=== PATIENT | male | born 1975 | race Caucasian/White ===

== ENCOUNTER 2024-06-25 15:15 | Emergency (ER) | payer OTHER, SELFPAY ==
[2024-06-25 15:18] VITALS: BP 167/92; PULSE 80; RESP 18; TEMP 35.9; O2SAT 97; BMI 29.2
--- NOTE | 2024-06-25 16:45 | EDS_ITS ---
HPI History of Present Illness Chief Complaint: Complaint Informant: patient Onset/Context/Timing Onset: Today Context: Gradual Onset Timing: Continuous Quality: Pressure Location: Lower abdomen Worsened by: Nothing Relieved by: Nothing Narrative Narrative: Patient presents with constipation and urinary retention that began today. Patient states he has been unable to urinate because he feels that he is constipated. Patient states he took MiraLAX and Colace this morning with no bowel movement. Patient states that later he took a Dulcolax suppository and did not have a bowel movement after that. Patient denies any fevers or chills. Patient admits to some pressure over his bladder area. Patient denies any nausea or vomiting. Patient denies any back pain. PFSH PFSH Home Medications ?Medication ?Instructions ?Recorded ?Last Taken ?Type NK 06/25/24 Unknown History Allergy/AdvReac Type Severity Reaction Status Date / Time No Known Allergies Allergy Verified 06/25/24 15:17 Social History Smoking Status: Former smoker EXAM Physical Exam Const Vital Signs: 06/25/24 15:18 06/25/24 19:00 Temperature 96.6 F L Temperature Source Temporal Pulse Rate 80 63 Respiratory Rate 18 16 Blood Pressure 167/92 H 141/71 H Blood Pressure Mean 117 94 Pulse Ox 97 97 Oxygen Delivery Method Room Air Room Air MDM MDM MDM Narrative Medical decision making narrative: Differential diagnosis includes bowel obstruction, perforation, constipation, urinary tract infection, colitis, diverticulitis, and electrolyte abnormality. Urinalysis will be obtained to assess for urinary tract infection and hematuria. CBC will be obtained to assess for leukocytosis and anemia. Basic metabolic profile will be obtained to assess for electrolyte abnormality and renal function. CT scan of the abdomen and pelvis will be obtained to assess for bowel obstruction, perforation, and constipation. Lab Data Attestation: I reviewed the patient's lab results. Lab results narrative: CBC was reviewed. There is a slight leukocytosis of 12.2. The remainder is within normal limits. Basic metabolic profile was reviewed and was within normal limits. Urinalysis was reviewed. There is no evidence of urinary tract infection or hematuria. Labs: Laboratory Results - last 24 hr 06/25/24 06/25/24 14:22 17:25 WBC 12.2 H RBC 4.35 L Hgb 14.5 Hct 41.4 MCV 95.2 H MCH 33.3 H MCHC 35.0 RDW Std Deviation 44.7 H RDW Coeff of Willam 12.9 Plt Count 220 MPV 10.0 Immature Gran % (Auto) 0.500 Neut % (Auto) 80.4 H Lymph % (Auto) 12.7 L [place] % (Auto) 5.8 Eos % (Auto) 0.3 Baso % (Auto) 0.3 Absolute Neuts (auto) 9.8 H Absolute Lymphs (auto) 1.55 Nucleated RBC % 0 Sodium 138 Potassium 4.2 Chloride 104 Carbon Dioxide 28.0 Anion Gap 6 BUN 16 Creatinine 0.99 Estim Creat Clear Calc 98.92 Est GFR (MDRD) Af Amer 103 Est GFR (MDRD) Non-Af 85 BUN/Creatinine Ratio 16.2 Glucose 109 H Calcium 9.1 Urine Color Yellow Urine Clarity Clear Urine pH 6.0 Ur Specific [place] 1.015 Urine Protein Negative Urine Glucose (UA) Normal Urine Ketones Negative Urine Occult Blood 25 H Urine Nitrite Negative Urine Bilirubin Negative Urine Urobilinogen Normal Ur Leukocyte Esterase Negative Urine RBC 0-5 SEEN Urine WBC 0-5 SEEN Ur Squamous Epith Cells 0 SEEN Urine Bacteria 0 SEEN Hyaline Casts 0-5 SEEN Urine Mucus 0 SEEN Radiography Diagnostic Testing: Clinical Impression(s) from Imaging Studies Abdomen/Pelvis CT 06/25/24 17:16 IMPRESSION: 1. No free air or free fluid or bowel dilatation or obstruction. No visualized bowel masses or diverticulosis. No abscess is present. No inflammatory stranding is seen. 2. Moderate stool retention throughout the full length of the colon with partial fecal distention and impaction in the rectum Electronically Signed: Stephen Arciniega MD at 19:40 EST Reading Location ID and State: [facility] / [place] , Service support , CT scan of the abdomen and pelvis was obtained. There is no free air or free fluid. There is no evidence of bowel obstruction or perforation. There are no fluid/masses noted. There are no inflammatory changes noted. There is moderate stool retention throughout the entire colon. This was interpreted by the radiologist and was also independently reviewed by myself. Treatment and Re-Evaluation :: Straight cath was ordered. Patient had 1200 cc of urine in his bladder. Patient felt better after this. Patient was advised of his findings. Patient was given a soapsuds enema here. Patient had some results with this. Patient was instructed to continue using MiraLAX as needed for constipation. Patient was also instructed to continue using Dulcolax suppositories as needed. Patient was instructed to follow-up with his primary care physician in 5 to 7 days. Patient was instructed to return if worse in any way. Patient understood and was agreeable with the plan. All questions were answered. Discharge Plan Triage Chief Complaint: Complaint Other Complaint: Constipation ED Provider: Gerry Bal Dx/Rx/DC Orders Clinical Impression: Constipation, Urinary retention Instructions: ED Constipation (Adult), ED Urinary Retention, Male Prescriptions: No Action NK Primary Care Provider: Dashawn Jj Referrals: NOT,DEFINED [Non-Staff] - Dashawn Jj [Primary Care Provider] - 5-7 Days Activity Restrictions/Additional Instructions: Continue using MiraLAX as needed for constipation. Print Language: Macedonian Disposition Disposition: Home, Self Care
--- NOTE | 2024-06-25 17:16 | CT_ITS ---
STUDY: CT ABDOMEN AND PELVIS WITH CONTRAST REASON FOR EXAM: Male, 49 years old. Abdominal pain UNABLE TO VOID OR HAVE BM TODAY RADIATION DOSAGE (If Supplied By Facility): CTDIvol = ( 15.56 ) mGy, DLP = ( 980.07 ) mGycm TECHNIQUE: Transaxial images were obtained from the dome of the diaphragm to the symphysis pubis without oral contrast. ml of 100mL Isovue-370 contrast was administered. Sagittal and coronal images were reconstructed. Individualized dose optimization techniques were used for this CT. COMPARISON: None. FINDINGS: The visualized lung bases are unremarkable. The visualized portions of the heart are within normal limits. Normal liver. Tiny cyst at the undersurface and central aspect of the left lobe of the liver noted of no clinical significance and does not require any additional imaging or follow-up. No free air or free fluid or bowel dilatation or obstruction. No visualized bowel masses or diverticulosis. No abscess is present. No inflammatory stranding is seen. Moderate stool retention throughout the full length of the colon with partial fecal distention and impaction in the rectum Normal gallbladder and extrahepatic biliary system. Normal spleen. Normal pancreas. Normal bilateral adrenal glands. Normal right kidney. Normal left kidney. Normal visualized stomach. Normal small intestine. Normal colon. The appendix is visualized and appears normal. Normal abdominal aorta. Normal inferior vena cava. Normal retroperitoneum. Normal urinary bladder. There is a small umbilical hernia containing fat. Normal osseous structures. CT/Abdomen/Pelvis W IV Cont ONLY IMPRESSION: 1. No free air or free fluid or bowel dilatation or obstruction. No visualized bowel masses or diverticulosis. No abscess is present. No inflammatory stranding is seen. 2. Moderate stool retention throughout the full length of the colon with partial fecal distention and impaction in the rectum Electronically Signed: Stephen Arciniega MD at 19:40 EST ,
[2024-06-25 17:34] LABS: Bacteria 0 SEEN /hpf (None Seen); Mucous, Urine 0 SEEN /hpf (<or=2+); Squamous Epithelial Cells - UA 0 SEEN /hpf (0-5)
--- NOTE | 2024-06-25 17:34 | ED.RN ---
Dr. Bal notified of 1200mL out on straight cath
[2024-06-25 17:35] LABS: Absolute Lymphocyte Count 1.55 X10^3/uL (0.83-4.51); Absolute Neutrophil Count 9.8 X10^3/uL (2.0-7.7); Basophil# 0.04 X10^3/uL; Basophil% 0.3 % (0-1); Eosinophil# 0.04 X10^3/uL; Eosinophils% 0.3 % (0-5); Hematocrit 41.4 % (40-54); Hemoglobin 14.5 g/dL (13.0-16.5); Lymphocyte # 1.55 X10^3/ul (0.83-4.51); Lymphocyte % 12.7 % (19-41); Mean Corpuscular Hgb 33.3 pg (27.0-32.0); Mean Corpuscular Volume 95.2 fL (80-94); Monocyte# 0.71 X10^3/uL; Monocyte% 5.8 % (0-10); NRBC Flagged by Analyzer 0 % (0-5); Neutrophil # 9.76 X10^3/uL (2.7-7.7); Neutrophil % 80.4 % (47-70); Platelet Count 220 K/mm3 (150-450); RBC Distribution Width CV 12.9 % (11.6-14.6); RBC Distribution Width SD 44.7 fl (35.1-43.9); Red Blood Count 4.35 M/mm3 (4.6-6.2); White Blood Count 12.2 K/mm3 (4.4-11.0)
[2024-06-25 17:36] LABS: Color, Urine Yellow (Yellow); Glucose, Dipstick Normal (Normal); Ketone-Dipstick Negative (Negative); Leukocyte Esterase-Dipstick Negative /ul (Negative); Nitrite-Dipstick Negative (Negative); Occult Blood-Urine 25 /ul (Negative); Protein-Dipstick Negative (Negative); Specific Gravity, Urine 1.015 (1.002-1.030); Urine Bilirubin Dipstick Negative (Negative); Urine Clarity Clear (Clear); Urine Urobilinogen Normal (Normal)
[2024-06-25 17:50] LABS: Anion Gap 6 (5-15); BUN 16 mg/dL (7-18); BUN/Creat Ratio 16.2 RATIO (10-20); Calcium,Total 9.1 mg/dL (8.5-10.1); Chloride 104 mmol/L (98-107); Creatinine, Serum 0.99 mg/dL (0.70-1.30); EST Glomerular Filtration Rate 85 mL/min (>60); Est Glom Filt Rate - Afr Amer 103 mL/min (>60); Estimated Creatinine Clearance 98.92 ml/min; Glucose 109 mg/dL (74-106); Potassium 4.2 mmol/L (3.5-5.1); Sodium Level 138 mmol/L (136-145)
[2024-06-25 18:04] LABS: Red Blood Cells-Urine 0-5 SEEN /hpf (0-5); White Blood Cells 0-5 SEEN /hpf (0-5)
[2024-06-25 18:05] LABS: Hyaline Cast 0-5 SEEN /lpf (0-5)
[2024-06-25 19:00] VITALS: BP 141/71; PULSE 63; RESP 16; O2SAT 97
[2024-06-25 20:53] VITALS: BP 138/74; PULSE 89; RESP 17; TEMP 36.6; O2SAT 99
== END 2024-06-25 20:57 | disposition home or self-care (01) ==
PROVIDERS: Emergency Provider Emergency Medicine; PCP Family Medicine; Visit Provider Emergency Medicine
DX: K59.00 Constipation, unspecified (principal); R33.9 Retention of urine, unspecified; Z87.891 Personal history of nicotine dependence
CPT/HCPCS: 74177; 80048; 81001; 85025; 99285; P9612; Q9967